=== PATIENT | female | born 1990 | race American Indian/Alaskan Native ===

== ENCOUNTER 2019-02-19 12:31 | Emergency (ER) | payer MEDICAID ==
--- NOTE | 2019-02-19 13:11 | Emergency Department Report ---
Chief Complaint: Abdominal Pain Stated Complaint: FLANK PAIN - HPI History of Present Illness: 28yo BF states that she has been having abdominal pain after eating and drinking x 2 weeks. - Exam Vital Signs: Vital Signs 02/19/19 12:36 Temperature 98.9 F Pulse Rate 101 H Respiratory 16 Rate Blood Pressure 125/87 O2 Sat by Pulse 100 Oximetry MSE screening note: Focused history and physical exam performed. Due to findings the following was ordered: ED Disposition for MSE Condition: Stable Instructions: Abdominal Pain (ED)
[2019-02-19 13:35] LABS: Bilirubin,Urine NEG (Negative); Blood,Urine NEG (Negative); Color,Urine Yellow (Yellow); Protein,Urine <15 mg/dL mg/dL (Negative)
[2019-02-19 13:38] LABS: HCG Qualitative,Urine Negative (Negative)
[2019-02-19] MEDS ORDERED: FAMOTIDINE 20 MG/2 ML INJ IV ONE (14:11)
--- NOTE | 2019-02-19 14:15 | Emergency Department Report ---
ED Abdominal Pain HPI - General Chief Complaint: Abdominal Pain Stated Complaint: FLANK PAIN Time Seen by Provider: 02/19/19 13:11 Source: patient Mode of arrival: Ambulatory Limitations: No Limitations - History of Present Illness Initial Comments: This is a 28-year-old -[place] female that presents to the emergency room with upper abdominal pain after eating for 2 weeks. Patient states she is taking ibuprofen with minimal improvement of symptoms. She also reports nausea and vomiting occasionally after eating. Patient reports pain occasionally radiates to back. She denies fever, chills, diarrhea, urinary frequency, urgency, dysuria, and diarrhea. MD Complaint: abdominal pain Onset/Timin -: week(s) Location: LUQ, RUQ Radiation: back Migration to: no migration Severity: moderate Severity scale (0 -10): 6 Quality: cramping, sharp Consistency: intermittent Improves With: nothing Worsens With: eating Associated Symptoms: nausea, vomiting. denies: diarrhea, fever, chills, constipation, dysuria, hematemesis, hematochezia, melena, hematuria, anorexia, syncope Treatments Prior to Arrival: NSAIDs - Related Data LMP Date: 02/16/19 Previous Rx's Medication Instructions Recorded Last Taken Type Famotidine [Pepcid] 40 mg PO DAILY #30 tablet 02/19/19 Unknown Rx Allergies Allergy/AdvReac Type Severity Reaction Status Date / Time No Known Allergies Allergy Verified 01/03/15 10:34 ED Review of Systems ROS: Stated complaint: FLANK PAIN Other details as noted in HPI Constitutional: denies: chills, fever Respiratory: denies: cough, shortness of breath, wheezing Cardiovascular: denies: chest pain, palpitations Gastrointestinal: abdominal pain, nausea, vomiting. denies: diarrhea Genitourinary: denies: urgency, dysuria, discharge Musculoskeletal: back pain. denies: joint swelling, arthralgia Skin: denies: rash, lesions Neurological: denies: headache, weakness, paresthesias Psychiatric: denies: anxiety, depression ED Past Medical Hx - Past Medical History Previous Medical History?: Yes Additional medical history: hypothyroid - Surgical History Past Surgical History?: Yes Additional Surgical History: THYROIDECTOMY, - Social History Smoking Status: Never Smoker Substance Use Type: None - Medications Home Medications: Home Medications Medication Instructions Recorded Confirmed Last Taken Type Famotidine [Pepcid] 40 mg PO DAILY #30 tablet 02/19/19 Unknown Rx ED Physical Exam - General Limitations: No Limitations General appearance: alert, in no apparent distress, obese (morbidly) - Respiratory Respiratory exam: Present: normal lung sounds bilaterally. Absent: respiratory distress - Cardiovascular Cardiovascular Exam: Present: regular rate, normal rhythm. Absent: systolic murmur, diastolic murmur, rubs, gallop - GI/Abdominal GI/Abdominal exam: Present: soft, tenderness (right upper quadrant), normal bowel sounds. Absent: distended, guarding, rebound, rigid, organomegaly - Back Exam Back exam: Absent: CVA tenderness (R), CVA tenderness (L) - Neurological Exam Neurological exam: Present: alert, oriented X3 - Psychiatric Psychiatric exam: Present: normal affect, normal mood - Skin Skin exam: Present: warm, dry, intact, normal color. Absent: rash ED Course Vital Signs 02/19/19 02/19/19 12:36 15:43 Temperature 98.9 F Pulse Rate 101 H Respiratory 16 18 Rate Blood Pressure 125/87 O2 Sat by Pulse 100 99 Oximetry ED Medical Decision Making - Lab Data Result diagrams: 02/19/19 14:21 02/19/19 14:21 Lab Results 02/19/19 02/19/19 02/19/19 Range/Units 14:21 14:21 Unknown WBC 12.7 H (4.5-11.0) K/mm3 RBC 3.89 (3.65-5.03) M/mm3 Hgb 13.3 (10.1-14.3) gm/dl Hct 39.2 (30.3-42.9) % MCV 101 H (79-97) fl MCH 34 H (28-32) pg MCHC 34 (30-34) % RDW 14.0 (13.2-15.2) % Plt Count 367 (140-440) K/mm3 Lymph % (Auto) 19.4 (13.4-35.0) % [place] % (Auto) 5.4 (0.0-7.3) % Eos % (Auto) 6.9 H (0.0-4.3) % Baso % (Auto) 0.9 (0.0-1.8) % Lymph # 2.5 (1.2-5.4) K/mm3 [place] # 0.7 (0.0-0.8) K/mm3 Eos # 0.9 H (0.0-0.4) K/mm3 Baso # 0.1 (0.0-0.1) K/mm3 Seg Neutrophils % 67.4 (40.0-70.0) % Seg Neutrophils # 8.6 H (1.8-7.7) K/mm3 Sodium 142 (137-145) mmol/L Potassium 3.7 (3.6-5.0) mmol/L Chloride 105.0 (98-107) mmol/L Carbon Dioxide 26 (22-30) mmol/L Anion Gap 15 mmol/L BUN 7 (7-17) mg/dL Creatinine 0.6 L (0.7-1.2) mg/dL Estimated GFR > 60 ml/min BUN/Creatinine Ratio 12 % Glucose 79 (65-100) mg/dL Calcium 8.2 L (8.4-10.2) mg/dL Total Bilirubin < 0.20 (0.1-1.2) mg/dL AST 16 (5-40) units/L ALT 9 (7-56) units/L Alkaline Phosphatase 61 (35-129) units/L Total Protein 6.1 L (6.3-8.2) g/dL Albumin 3.7 L (3.9-5) g/dL Albumin/Globulin Ratio 1.5 % Lipase 29 (13-60) units/L Urine Color Yellow (Yellow) Urine Turbidity Clear (Clear) Urine pH 7.0 (5.0-7.0) Ur Specific Arnold 1.012 (1.003-1.030) Urine Protein <15 mg/dl (Negative) mg/dL Urine Glucose (UA) Neg (Negative) mg/dL Urine Ketones Neg (Negative) mg/dL Urine Blood Neg (Negative) Urine Nitrite Neg (Negative) Urine Bilirubin Neg (Negative) Urine Urobilinogen 2.0 (<2.0) mg/dL Ur Leukocyte Esterase Neg (Negative) Urine WBC (Auto) 1.0 (0.0-6.0) /HPF Urine RBC (Auto) 1.0 (0.0-6.0) /HPF U Epithel Cells (Auto) 3.0 (0-13.0) /HPF Urine HCG, Qual Negative (Negative) - Radiology Data Radiology results: report reviewed CT ABDOMEN AND PELVIS WITHOUT CONTRAST HISTORY: RUQ tenderness. COMPARISON: 01/03/2015 TECHNIQUE: CT images of the abdomen and pelvis were obtained without oral or IV contrast. All CT scans at this location are performed using CT dose reduction for ALARA by means of automated exposure control. FINDINGS: LUNG BASES: Stable, top normal heart size. Lungs now clear. No effusions. Nonsp ecific distal esophageal prominence/mild thickening, not excluded for gastroesophageal reflux and/or hiatal hernia, amongst others. ABDOMEN: Please note that sensitivity to detect small visceral lesions is limited due to the absence of contrast. Right hepatic lobe 17.8 cm in midclavicular length. O therwise grossly unremarkable unenhanced liver, spleen, suboptimally distended gallbladder, pancreas, adrenals, nonaneurysmal abdominal aorta, IVC and kidneys. Subtle periaortic haziness with few small subcentimeter lymph nodes incidentally noted, nonspecific. No ascites or size significant adenopathy. Nonopacified GI tract evaluation limited, though grossly nonobstructive. Slightly low- lying cecum with a normal appendix extending towards the midline. Mild stool throughout colon. Streak artifact from a supraumbilical ornament again noted. Small fat-containing umbilical hernia with a transverse neck of 1 cm. PELVIS: Uterus, adnexae, rectosigmoid and nonopacified urinary bladder grossly within normal limits with likely physiologic minimal pelvic free fluid as on axial image 494, series 3, amongst others. No size significant adenopathy. Mild osteitis pubis condensans. IMPRESSION: No acute CT abnormality with few incidental findings, as above. - Medical Decision Making Patient is stable and was examined by me. Vitals stable. Given morphine and Pepcid. There is right upper quadrant tenderness on palpation. CT of abdomen and pelvis was obtained. No acute CT abnormality with few incidental findings, as above. Plan to start Pepcid. Referral to Gastroenterology. Discussed plan with patient and agreed to plan. No further questions noted by the patient. Discharged home in stable condition. Follow up with PCP in 2-3 days. Critical care attestation.: If time is entered above; I have spent that time in minutes in the direct care of this critically ill patient, excluding procedure time. ED Disposition Clinical Impression: Abdominal pain Qualifiers: Abdominal location: right upper quadrant Qualified Code(s): R10.11 - Right up per quadrant pain Disposition: DC-01 TO HOME OR SELFCARE Is pt being admited?: No Condition: Stable Instructions: Abdominal Pain (ED) Additional Instructions: If food or water is thought to be contaminated, it should be avoided. Increase fluid intake. Drinks high in sugars such as carbonated soft drinks, fruit juice, and highly sugared liquids should be avoided. Prescriptions: Famotidine [Pepcid] 40 mg PO DAILY #30 tablet Referrals: [facility] [Outside] - 3-5 Days [facility] [Outside] - 3-5 Days [facility] [Outside] - 3-5 Days Forms: Work/School Release Form(ED) Time of Disposition: 18:43
[2019-02-19 14:53] LABS: Basophils # (Auto) 0.1 K/mm3 (0.0-0.1); Basophils % (Auto) 0.9 % (0.0-1.8); Eosinophils # (Auto) 0.9 K/mm3 (0.0-0.4); Eosinophils % (Auto) 6.9 % (0.0-4.3); Hematocrit 39.2 % (30.3-42.9); Hemoglobin 13.3 gm/dl (10.1-14.3); Lymphocytes # (Auto) 2.5 K/mm3 (1.2-5.4); Lymphocytes % (Auto) 19.4 % (13.4-35.0); Mean Corpuscular HGB Conc 34 % (30-34); Mean Corpuscular Volume 101 fl (79-97); Monocytes # (Auto) 0.7 K/mm3 (0.0-0.8); Monocytes % (Auto) 5.4 % (0.0-7.3); Platelet Count 367 K/mm3 (140-440); Red Blood Count 3.89 M/mm3 (3.65-5.03)
[2019-02-19 15:04] LABS: Alanine Aminotransferase 9 units/L (7-56); Albumin 3.7 g/dL (3.9-5); BUN/Creatinine Ratio 12; Blood Urea Nitrogen 7 mg/dL (7-17); Calcium 8.2 mg/dL (8.4-10.2); Hemolysis Index 12
[2019-02-19] MEDS ORDERED: MORPHINE 2 MG/1 ML INJ IV ONE (16:04)
--- NOTE | 2019-02-19 16:50 | Cat Scan Report ---
CT ABDOMEN AND PELVIS WITHOUT CONTRAST HISTORY: RUQ tenderness. COMPARISON: 01/03/2015 TECHNIQUE: CT images of the abdomen and pelvis were obtained without oral or IV contrast. All CT sca ns at this location are performed using CT dose reduction for ALARA by means of automated exposure co ntrol. FINDINGS: LUNG BASES: Stable, top normal heart size. Lungs now clear. No effusions. Nonspecific distal esophage al prominence/mild thickening, not excluded for gastroesophageal reflux and/or hiatal hernia, amongst others. ABDOMEN: Please note that sensitivity to detect small visceral lesions is limited due to the absence of contrast. Right hepatic lobe 17.8 cm in midclavicular length. Otherwise grossly unremarkable unenh anced liver, spleen, suboptimally distended gallbladder, pancreas, adrenals, nonaneurysmal abdominal aorta, IVC and kidneys. Subtle periaortic haziness with few small subcentimeter lymph nodes incidenta lly noted, nonspecific. No ascites or size significant adenopathy. Nonopacified GI tract evaluation l imited, though grossly nonobstructive. Slightly low-lying cecum with a normal appendix extending towa rds the midline. Mild stool throughout colon. Streak artifact from a supraumbilical ornament again no vilma. Small fat-containing umbilical hernia with a transverse neck of 1 cm. PELVIS: Uterus, adnexae, rectosigmoid and nonopacified urinary bladder grossly within normal limits w ith likely physiologic minimal pelvic free fluid as on axial image 494, series 3, amongst others. No size significant adenopathy. Mild osteitis pubis condensans. IMPRESSION: No acute CT abnormality with few incidental findings, as above. Thank you for the opportunity to participate in this patient's care. Signer Name: Manuel Maurer Signed: 02/19/2019 4:45 PM Workstation Name: [id number]
[2019-02-19] MEDS ORDERED: HYDROcodone/ACETAMINOPHEN 5-325 MG TAB PO ONE (18:48)
[2019-02-19] MEDS ORDERED: HYDROcodone/ACETAMINOPHEN 5-325 MG TAB ONE (18:52)
[2019-02-19 19:05] VITALS: BP 113/54
== END 2019-02-19 19:10 | disposition home or self-care (01) ==
LOC: ED 12:31
DX: R10.11 Right upper quadrant pain (principal); R10.12 Left upper quadrant pain; R11.2 Nausea with vomiting, unspecified; E03.9 Hypothyroidism, unspecified; Z98.890 Other specified postprocedural states
CPT/HCPCS: 36415; 74176; 80053; 81001; 81025; 83690; 85025; 96374; 96375; 99284; J2270

== ENCOUNTER 2021-10-11 13:05 | Emergency (ER) | payer SELFPAY | END 2021-10-11 13:30 | disposition left against medical advice (07) | LOC: ED 13:05 | DX: S69.90XA Unspecified injury of unspecified wrist, hand and finger(s), initial encounter (principal); Z53.21 Procedure and treatment not carried out due to patient leaving prior to being seen by health care provider; X58.XXXA Exposure to other specified factors, initial encounter; Y93.89 Activity, other specified; Y92.89 Other specified places as the place of occurrence of the external cause; Y99.8 Other external cause status ==